=== PATIENT | female | born 1985 | race Caucasian/White ===

== ENCOUNTER 2018-09-16 12:08 | Emergency (ER) | payer BC, OTHER ==
[~2018-09-16] VITALS: Ht 157.5 cm; Wt 71.7 kg
--- NOTE | 2018-09-16 12:24 | NUR ---
TASK RN: "I THINK I HAVE A MIGRAINE" PT REPORTS HIGH HR, DOUBLE VISION, LIGHTHEADEDNESS, PAIN IN FACE. DENIES N/V, DIARRHEA. ALL SYMPTOMS STARTED 09/12/2018. PT CONNECTED TO ALL MONITORS. NO ACTUE DISTRESS NOTED. CALL LIGHT WITHIN REACH.
[2018-09-16] MEDS ORDERED: KETOROLAC 30 MG/1 ML IM ONE (12:30)
[2018-09-16] MEDS ORDERED: NORE-88 PO (12:38)
[2018-09-16] MEDS ORDERED: KETOROLAC 60 MG/2 ML ONE (12:42)
--- NOTE | 2018-09-16 12:48 | NUR ---
TASK RN: PT MEDICATED FOR PAIN PER EMAR. BOYFRIEND AND BOYFRIEND'S MOTHER AT BEDSIDE.
[2018-09-16 12:49] LABS: BASOPHILS # (AUTO) 0.03 x10^3/uL (0-0.1); BASOPHILS % (AUTO) 1 % (0-1); EOSINOPHILS # (AUTO) 0.08 x10^3/uL (0-0.4); EOSINOPHILS % (AUTO) 1 % (1-7); LYMPHOCYTES % (AUTO) 29 % (22-44); MD NO; MEAN CORPUSCULAR HEMOGLOBIN 31.1 pg (27.0-34.8); MEAN CORPUSCULAR HGB CONC 33.5 g/dL (32.4-35.8); MEAN CORPUSCULAR VOLUME 92.7 fL (80-100); MEAN PLATELET VOLUME 10.5 fL (7.4-10.4); MONOCYTES # (AUTO) 0.46 x10^3/uL (0.2-0.8); MONOCYTES % (AUTO) 7 % (2-9); NEUTROPHILS # (AUTO) 4.15 x10^3/uL (1.8-6.8); NEUTROPHILS % (AUTO) 63 % (42-75); PLATELET COUNT 270 x10^3/uL (130-400); RED BLOOD COUNT 4.17 x10^6/uL (3.82-5.3)
[2018-09-16 12:57] LABS: ALANINE AMINOTRANSFERASE 13 U/L (12-78); ANION GAP 7 mmol/L (5-15); CALCIUM 8.9 mg/dL (8.5-10.1); CHLORIDE 109 mmol/L (98-107); CREATININE 0.86 mg/dL (0.55-1.02)
[2018-09-16 13:02] LABS: ALKALINE PHOSPHATASE 62 U/L (45-117); BILIRUBIN,TOTAL 0.3 mg/dL (0.2-1.0); TOTAL PROTEIN 7.1 g/dL (6.4-8.2); TROPONIN I < 0.015 ng/mL (0.000-0.045)
--- NOTE | 2018-09-16 13:05 | NUR ---
LATE ENTRY FOR 1245 RECEIVED BEDSIDE REPORT FROM RUBIA LIZ. PT RESTING ON [facility]. FAMILY BEDSIDE.
--- NOTE | 2018-09-16 13:20 | NUR ---
PT BACK FROM IMAGING. NO ACUTE DISTRESS NOTED. FAMILY BEDSIDE. NO NEEDS REQUESTED AT THIS TIME.
--- NOTE | 2018-09-16 14:02 | NUR ---
GIVEN DC INSTRUCTION WITH TEST RESULT PT UNDERSTOOD PT UP AMBULATED TO CHECK OUT
[2018-09-16 14:03] VITALS: BP 107/65
== END 2018-09-16 14:05 | disposition home or self-care (01) ==
LOC: ED 13:32
DX: G43.019 Migraine without aura, intractable, without status migrainosus (principal); R55 Syncope and collapse
CPT/HCPCS: 36415; 70450; 71045; 80053; 83735; 84484; 84703; 85025; 93005; 96372; 99284; J1885